=== PATIENT | female | born 1975 | race American Indian/Alaskan Native ===

== ENCOUNTER 2017-02-21 01:38 | Emergency (ER) | payer SELFPAY ==
[2017-02-21 01:44] VITALS: BP 141/87
[2017-02-21 03:03] LABS: Basophils % (Auto) 1.2 % (0.0-1.8); Eosinophils % (Auto) 1.6 % (0.0-4.3); Hematocrit 35.8 % (30.3-42.9); Mean Corpuscular HGB Conc 31 % (30-34); Platelet Count 248 K/mm3 (140-440); Red Blood Count 5.18 M/mm3 (3.65-5.03); White Blood Count 8.5 K/mm3 (4.5-11.0)
[2017-02-21 03:04] LABS: Mean Corpuscular Hemoglobin 21 pg (28-32); Mean Corpuscular Volume 69 fl (79-97)
[2017-02-21 03:32] LABS: Alanine Aminotransferase 10 units/L (7-56); Albumin 4.3 g/dL (3.9-5); Albumin/Globulin Ratio 1.3 %; Alkaline Phosphatase 44 units/L (35-129); Anion Gap 14 mmol/L; Blood Urea Nitrogen 15 mg/dL (7-17); Calcium 8.8 mg/dL (8.4-10.2); Carbon Dioxide 26 mmol/L (22-30); Chloride 101.6 mmol/L (98-107); Glucose 103 mg/dL (65-100); Lipase 15 units/L (13-60); Potassium 3.3 mmol/L (3.6-5.0); Sodium 138 mmol/L (137-145); Total Protein 7.5 g/dL (6.3-8.2)
[2017-02-21 04:05] LABS: Bilirubin,Urine NEG (Negative); Blood,Urine NEG (Negative); Ketones,Urine TR mg/dL (Negative); Leukocyte Esterase,Urine NEG (Negative); Mucus,Urine 3+ /HPF; Nitrite,Urine NEG (Negative); Protein,Urine <15 mg/dL mg/dL (Negative); WBC,Urine < 1.0 /HPF (0.0-6.0)
--- NOTE | 2017-02-23 21:49 | ED Elopement Review ---
ED Pt Elopement review - Results review Lab results: Laboratory Tests 02/21/17 02/21/17 02/21/17 02:28 02:28 02:28 WBC 8.5 RBC 5.18 H Hgb 11.0 Hct 35.8 MCV 69 L MCH 21 L MCHC 31 RDW 18.0 H Plt Count 248 Lymph % (Auto) 31.5 [place] % (Auto) 7.0 Eos % (Auto) 1.6 Baso % (Auto) 1.2 Lymph # 2.7 [place] # 0.6 Eos # 0.1 Baso # 0.1 Seg Neutrophils % 58.7 Seg Neutrophils # 5.0 Sodium 138 Potassium 3.3 L Chloride 101.6 Carbon Dioxide 26 Anion Gap 14 BUN 15 Creatinine 0.6 L Estimated GFR > 60 BUN/Creatinine Ratio 25.00 Glucose 103 H Calcium 8.8 Total Bilirubin 0.20 AST 14 ALT 10 Alkaline Phosphatase 44 Troponin T < 0.010 Total Protein 7.5 Albumin 4.3 Albumin/Globulin Ratio 1.3 Lipase 15 HCG, Qual Negative Urine Color Urine Turbidity Urine pH Ur Specific [place] Urine Protein Urine Glucose (UA) Urine Ketones Urine Blood Urine Nitrite Urine Bilirubin Urine Urobilinogen Ur Leukocyte Esterase Urine WBC (Auto) Urine RBC (Auto) U Epithel Cells (Auto) Hyaline Casts Urine Mucus 02/21/17 03:29 WBC RBC Hgb Hct MCV MCH MCHC RDW Plt Count Lymph % (Auto) [place] % (Auto) Eos % (Auto) Baso % (Auto) Lymph # [place] # Eos # Baso # Seg Neutrophils % Seg Neutrophils # Sodium Potassium Chloride Carbon Dioxide Anion Gap BUN Creatinine Estimated GFR BUN/Creatinine Ratio Glucose Calcium Total Bilirubin AST ALT Alkaline Phosphatase Troponin T Total Protein Albumin Albumin/Globulin Ratio Lipase HCG, Qual Urine Color Yellow Urine Turbidity Slightly-cloudy Urine pH 5.0 Ur Specific [place] 1.029 Urine Protein <15 mg/dl Urine Glucose (UA) Neg Urine Ketones Tr Urine Blood Neg Urine Nitrite Neg Urine Bilirubin Neg Urine Urobilinogen 2.0 Ur Leukocyte Esterase Neg Urine WBC (Auto) < 1.0 Urine RBC (Auto) 5.0 U Epithel Cells (Auto) 10.0 Hyaline Casts 1 Urine Mucus 3+ - Call Back decision Pt Call Back Decision: Call pt to return to ED [facility]
== END 2017-02-21 03:43 | disposition left against medical advice (07) ==
LOC: ED 01:38
DX: R11.11 Vomiting without nausea (principal); Z53.21 Procedure and treatment not carried out due to patient leaving prior to being seen by health care provider
CPT/HCPCS: 36415; 80053; 81001; 83690; 84484; 84703; 85025; 93005; 93010